=== PATIENT | male | born 1995 | race Caucasian/White ===

== ENCOUNTER → 2023-05-25 | Outpatient (CLI) | payer OTHER ==
[2023-05-26 02:20] LABS: Basophils # (A) 0.03 X 10*3/uL (0.00-0.10); Basophils % (A) 0.5 %; Eosinophils # (A) 0.12 X 10*3/uL (0.04-0.35); Eosinophils % (A) 1.9 %; HCT 45.8 % (39.6-50.0); Immature Grans, Automated 0 %; Lymphocytes # (A) 1.99 X 10*3/uL (0.90-5.00); Lymphocytes % (A) 32.2 %; MCH 27.6 pg (27.0-32.0); MCHC 32.8 d/dL (32.0-37.0); MCV 84.3 FL (80.0-97.0); Mean Platelet Volume 10.4 FL (9.5-12.2); Monocytes # (A) 0.32 X 10*3/uL (0.20-1.00); Monocytes % (A) 5.2 %; NRBC Per 100 WBC 0 X 10*3/uL (0.00-0.01); Neutrophils # (A) 3.72 X 10*3/uL (1.80-7.70); Neutrophils % (A) 60.2 %; Platelet Count 247 X 10*3/uL (140-440); RBC 5.43 X 10*6/uL (4.40-5.60); RDW 12.7 % (11.5-14.5); WBC 6.18 X 10*3/uL (4.50-10.00)
[2023-05-26 03:21] LABS: Thyroid Peroxidase Antibodies <9.0 U/mL (0.0-33.0)
[2023-05-26 03:52] LABS: ALT 32 U/L (10-49); AST 21 U/L (14-35); Albumin 5.2 d/dL (3.8-4.9); Alkaline Phosphatase 57 U/L (41-126); Calcium 9.9 mg/dL (8.7-10.3); Carbon Dioxide 27.9 mmol/L (21.6-31.8); Chloride 103 mmol/L (96-109); Glucose 91 mg/dL (70-110); Potassium 4.4 mmol/L (3.5-5.5); Sodium 142 mmol/L (135-145); T4, Free (Free Thyroxine) 1.09 ng/dL (0.80-1.80); Total Bilirubin 1.4 mg/dL (0.3-1.2); Total Protein 7.2 d/dL (6.2-8.2)
[2023-05-26 05:59] LABS: Peanut IgE <0.10 kU/L; Soybean IgE <0.10 kU/L
[2023-05-26 10:14] LABS: Almond IgE <0.10 kU/L (<0.10); Almond IgE Class CLASS 0; Apple IgE Class CLASS 0; Banana IgE Class CLASS 0; Rye (Food) IgE <0.10 kU/L (<0.10); Rye (Food) IgE Class CLASS 0
== END | disposition home or self-care (01) ==
LOC: LABWHC1 14:28
PROVIDERS: ATTEND Allergy & Immunology
DX: E04.1 Nontoxic single thyroid nodule (principal); K52.9 Noninfective gastroenteritis and colitis, unspecified; R00.0 Tachycardia, unspecified; R53.83 Other fatigue; R23.2 Flushing
CPT/HCPCS: 36415; 80053; 84439; 84443; 85025; 86003; 86038; 86160; 86161; 86162; 86376; 86800